=== PATIENT | male | born 1995 | race African-American/Black ===

== ENCOUNTER 2025-06-12 09:38 | Emergency (ER) | payer OTHER ==
[~2025-06-12] VITALS: Ht 177.8 cm; Wt 77.0 kg
[2025-06-12 09:42] VITALS: O2SAT 98
[2025-06-12 11:09] LABS: BASOPHILS % 0.9 % (0.0-2.0); EOSINOPHILS % 0.5 % (0.0-5.0); HEMATOCRIT. 40.2 % (42.0-52.0); HEMOGLOBIN. 13.5 g/dL (14.0-18.0); LYMPHOCYTES % 14.3 % (20.0-50.0); MEAN PLATELET VOLUME 6.8 fl (7.4-10.4); MONOCYTES % 10.0 % (2.0-8.0); NEUTROPHILS % 74.3 % (40.0-76.0); PLATELET 295 x1000/uL (130-400); RED BLOOD CELL COUNT 4.35 mill/uL (4.7-6.1); RED CELL DISTRIBUTION WIDTH 12.9 % (11.6-14.6)
[2025-06-12] MEDS: HYDROXYZINE 25MG TABLET PO ONE (11:16)
[2025-06-12 11:23] LABS: CREATININE 0.9 mg/dL (0.6-1.3)
[2025-06-12 11:24] LABS: TROPONIN I HIGH SENSITIVITY < 4 ng/L (3.0-53); UREA NITROGEN BLOOD 6 mg/dL (9-23)
[2025-06-12 11:25] LABS: ASPARTATE AMINOTRANSFERASE 31 IU/L (<34)
[2025-06-12 11:26] LABS: BILIRUBIN DIRECT 0.4 mg/dL (<=3.0); BILIRUBIN TOTAL 1.1 mg/dL (0.1-1.0); PROTEIN TOTAL 8.0 g/dL (6.0-8.3)
[2025-06-12] MEDS ORDERED: HYDR50TA55 MT (12:39)
[2025-06-12 12:45] VITALS: BP 110/89; PULSE 77; RESP 16; TEMP 36.9; O2SAT 99
== END 2025-06-12 12:48 | disposition home or self-care (01) ==
LOC: ER 09:38
DX: F41.9 Anxiety disorder, unspecified (principal); F41.0 Panic disorder [episodic paroxysmal anxiety]; R07.89 Other chest pain; R06.02 Shortness of breath; R20.2 Paresthesia of skin; R20.0 Anesthesia of skin
CPT/HCPCS: 36415; 71045; 80048; 80076; 84484; 85025; 93005; 99285